=== PATIENT | female | born 1960 | race Caucasian/White ===

== ENCOUNTER → 2017-11-23 | Outpatient (CLI) | payer MEDICAID | LOC: FIMAGING 14:02 | PROVIDERS: ATTEND Physician Assistant | DX: R59.9 Enlarged lymph nodes, unspecified (principal); Z85.3 Personal history of malignant neoplasm of breast ==

== ENCOUNTER → 2017-11-25 | Outpatient (CLI) | payer MEDICAID ==
[~2017-11-25] MED LIST: LIDOCAINE 1% 300 MG/30 ML SDV ONE
== END ==
LOC: FIMAGING 09:27
PROVIDERS: ATTEND Physician Assistant
PROC: 07B23ZX Excision of Left Neck Lymphatic, Percutaneous Approach, Diagnostic (ICD-10-PCS; principal; 2017-11-25)
DX: C77.0 Secondary and unspecified malignant neoplasm of lymph nodes of head, face and neck (principal); Z85.3 Personal history of malignant neoplasm of breast

== ENCOUNTER → 2018-08-05 | Outpatient (CLI) | payer MEDICAID | LOC: FIMAGING 11:18 | PROVIDERS: ATTEND Radiology Radiation Oncology | DX: C50.919 Malignant neoplasm of unspecified site of unspecified female breast (principal); R09.89 Other specified symptoms and signs involving the circulatory and respiratory systems ==

== ENCOUNTER → 2019-02-08 | Outpatient (CLI) | payer MEDICAID | LOC: FIMAGING 09:36 | PROVIDERS: ATTEND Internal Medicine Nephrology | DX: R79.89 Other specified abnormal findings of blood chemistry (principal) ==